=== PATIENT | male | born 1955 ===

== ENCOUNTER 2021-10-06 06:28 | Day surgery (SDC) | payer BC ==
[~2021-10-06 06:28] MED LIST: Lactated Ringers 1,000 ML IV SCH; Sodium Chloride 0.9% 10 ML Syringe FLUSH PRN; Sodium Chloride 0.9% 2.5 ML Syringe FLUSH PRN; Sodium Chloride 0.9% 20 ML SDV IV PRN
[2021-10-06] MEDS ORDERED: fentaNYL 100 MCG/2 ML SDV ONE (07:41)
[2021-10-06] MEDS ORDERED: Propofol 200 MG/20 ML SDV ONE ×2 (07:41→08:49)
[2021-10-06] MEDS ORDERED: Ketamine 500 mg/10 ML MDV ONE (08:16)
== END 2021-10-06 09:38 | disposition home or self-care (01) ==
LOC: MW.SDS 06:28
PROVIDERS: ATTEND Surgery
DX: Z12.11 Encounter for screening for malignant neoplasm of colon (principal); D12.3 Benign neoplasm of transverse colon; K57.30 Diverticulosis of large intestine without perforation or abscess without bleeding; K64.9 Unspecified hemorrhoids; E78.00 Pure hypercholesterolemia, unspecified; I10 Essential (primary) hypertension; E11.9 Type 2 diabetes mellitus without complications; E66.9 Obesity, unspecified; Z87.891 Personal history of nicotine dependence; Z79.82 Long term (current) use of aspirin; Z79.899 Other long term (current) drug therapy
CPT/HCPCS: 45380; 82947; J2704; J3010; J7120; 00812; J3490